=== PATIENT | male | born 1965 | race Caucasian/White ===

== ENCOUNTER 2016-04-29 18:00 | Emergency (ER) | payer OTHER ==
[~2016-04-29] VITALS: Ht 180.3 cm; Wt 104.3 kg
[~2016-04-29 18:00] MED LIST: AUGMENTIN 875875 MG PO; BACTRIM DS 8001 TAB PO; BENTYL20 MG PO; DICLOFENAC SODI75 M3 PO; ENDOCET 325 MG-1 TA1 PO; FLEXERIL10 MG PO; HYDROCODONE/ACE1 TA1 PO; INDOMETHACIN50 MG PO; KEFLEX500 MG PO; MEDROL DOSEPAK1 PAC PO; NORVASC 10MG10 MG PO; NORVASC 5MG TAB5 MG PO; PANTOPRAZOLE SO40 MG PO; PERCOCET 325 MG1 TA2 PO; PREDNISONE10 MG PO; TAMSULOSIN HYD0.4 MG PO; TRIUMEQ1 TAB PO; ZOFRAN ODT4 MG PO
--- NOTE | 2016-04-29 18:25 | ED DYSPNEA/ASTHMA COMPLAINT ---
History of Present Illness General Chief Complaint: General Adult Stated Complaint: PT HAVING PROBLEM BREATHING SPO 96 Source: patient Exam Limitations: no limitations Allergies Coded Allergies: povidone-iodine (RASH 04/24/15) Reconcile Medications Albuterol Sulfate 2.5 MG/3 ML (0.083 %) VIAL.NEB 1 Vial INH/SRI Q4P PRN wheezing/shortness of breath Amlodipine Besylate 10 MG TABLET 1 TAB PO DAILY BP (Reported) Aspirin (Lo-Dose Aspirin EC) 81 MG TABLET.DR 1 TAB PO DAILY HEART/BLOOD ( Reported) Doxycycline Hyclate (Vibramycin) 100 MG CAPSULE 1 CAP PO BID infection Emtricitab/Rilpiviri/Tenof Ala (Odefsey Tablet) 200 MG-25 MG-25 MG TABLET 1 TAB PO DAILY ANTIVIRAL (Reported) Fluticasone Propionate 50 MCG/ACTUATION SPRAY.SUSP 1 SPRAY NASB PRN NASAL CONGESTION (Reported) Ibuprofen 600 MG TABLET 1 TAB PO PRN PAIN/INFLAMMATION (Reported) with food Methylprednisolone. (Medrol) 4 MG TAB.DS.PK 1 DP PO AD breathing Pantoprazole Sodium 40 MG TABLET.DR 1 TAB PO BID GI (Reported) Robitussin AC (Guaifenesin-Codeine Syrup) 200 MG-20 MG/10 ML LIQUID 10 ML PO Q6H PRN COUGH Trazodone HCl 50 MG TABLET 1 TAB PO PRN SLEEP (Reported) Triage Note: PT REPORTS DIFFICULTY BREATHING WITH PERSISTANT GREEN COLOR PRODUCTIVE COUGH. THIS SMATTER BEGAN 3 DAYS AGO, DENIED FEVER. NON SMOKER. Triage Nurses Notes Reviewed? yes HPI: Patient is a 50 year old male presents complaining of cough and shortness of breath. Patient began with sore throat on Sunday. Cough onset on Sunday. Associated diarrhea, headache and nausea. Patient has been able to tolerate food and fluids. Patient received an influenza vaccination this year. Yesterday chills and diaphoresis. Patient is HIV+, last CD4 was slightly under 500, last checked a couple of months ago. Denies fevers. (BEAU NARANJO,BERT) Vital Signs & Intake/Output Vital Signs & Intake/Output Vital Signs Date Time Temp Pulse Resp B/P Pulse O2 O2 Flow FiO2 Ox Delivery Rate 04/29 2100 98.7 97 22 125/87 94 Nasal 2.0L Cannula 04/29 1901 96 Room Air 04/29 1843 99.4 95 22 130/93 93 Room Air 04/29 1804 97.5 117 18 122/84 96 Room Air Past History Travel History Traveled to [place] past 21 day No Medical History Any Pertinent Medical History? 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 No (BERT ANTUNEZ) Review of Systems Review of Systems Constitutional: Reports: malaise. Denies: chills, fever. EENTM: Reports: nasal congestion, throat pain. Respiratory: Reports: see HPI, cough, short of breath, sputum production, wheezing. Cardiovascular: Denies: chest pain. GI: Reports: diarrhea (resolved). Denies: abdominal pain, vomiting. Genitourinary: Reports: no symptoms. Musculoskeletal: Reports: no symptoms. Skin: Reports: no symptoms. Neurological/Psychological: Reports: no symptoms. Hematologic/Endocrine: Reports: no symptoms. Immunologic/Allergic: Reports: HIV/AIDS. (BERT ANTUNEZ) Physical Exam Physical Exam General Appearance: well developed/nourished, alert, awake Head: atraumatic, normal appearance Eyes: Bilateral: normal appearance, PERRL, EOMI. Ears, Nose, Throat: normal pharynx, normal ENT inspection, hearing grossly normal Neck: normal inspection, supple, full range of motion Respiratory: diffuse expiratory wheezing Cardiovascular: tachycardia (regular rhythm) Peripheral Pulses: 2+ radial (L) Extremities: normal inspection, normal capillary refill, normal range of motion, no edema Neurologic/Psych: no motor/sensory deficits, awake, alert, oriented x 3, normal gait, normal mood/affect Skin: intact, normal color, warm/dry Lymphatic: no anterior cervical dennis Core Measures ACS in differential dx? No Severe Sepsis Present: No Septic Shock Present: No (BERT ANTUNEZ) Progress Differential Diagnosis: asthma, AMI, bronchitis, CHF, COPD, pulmonary embolism, pneumonia, unstable angina, PCP pneumonia Plan of Care: Orders Procedure Date/time Status Add-on Test (ER Only) 04/30 2003 Active LDH (LACT ACID DEHYDROGENASE) 04/29 1950 Complete LACTIC ACID 04/29 1950 Complete COMPREHENSIVE METABOLIC PANEL 04/29 1950 Complete CBC WITHOUT DIFFERENTIAL 04/29 1950 Complete Laboratory Tests 04/29/16 2006: Anion Gap 11, Estimated GFR > 60, BUN/Creatinine Ratio 12.7, Glucose 100 H, Lactic Acid 1.5, Calcium 9.1, Total Bilirubin 0.5, AST 29, ALT 53, Alkaline Phosphatase 99, Lactate Dehydrogenase 438, Total Protein 7.4, Albumin 4.0, Globulin 3.4, Albumin/Globulin Ratio 1.2, CBC w Diff NO MAN DIFF REQ, RBC 4.83, MCV 95.3 H, MCH 32.2 H, RDW 13.4, MPV 9.1, Gran % 40.3 L, Lymphocytes % 37.7, Monocytes % 15.8 H, Eosinophils % 5.7 H, Basophils % 0.5, Absolute Granulocytes 2.6, Absolute Lymphocytes 2.4, Absolute Monocytes 1.0 H, Absolute Eosinophils 0.4, Absolute Basophils 0, PUBS MCHC 33.7 Patient reports his resting heart rate is normally in the 100s to 110s. Discussed with Dr. Harrison. 04/29/2016 7:42:50 PM: Patient continues with moderate diffuse inspiratory and expiratory wheezing after 3 nebulizer treatments. Oxygen saturation 92-93% on room air 04/29/2016 9:06:15 PM: Patient reports no significant improvement. Offered admission, patient would prefer discharge. Patient taken off of supplemental oxygen Will recheck on room air saturation if patient maintaining his oxygen saturation then we'll discharge with close outpatient follow-up with patient desaturating then plan for admission. 04/29/2016 9:30:40 PM: Patient ambulated from pot 3 down to pot one nursing station, oxygen saturation 92-93% on room air. No acute respiratory distress with ambulation. Discussed with patient discharged versus remaining in the hospital. With patient not becoming hypoxic and believed that patient can be started on a course of oral steroids, nebulizer and follow-up with his primary care doctor on Sunday. Patient instructed to return to the emergency Department immediately if any worsening of symptoms. (BERT ANTUNEZ) Diagnostic Imaging: Viewed by Me: Radiology Read. Discussed w/RAD: Radiology Read. Radiology Impression: PATIENT: TUNG SCOTT PRESENT AGE: 50 PATIENT ACCOUNT NO: [id number] : 63 LOCATION: [facility] [place] ORDERING PHYSICIAN: BERT NARANJO SERVICE DATE: 04/29/16 EXAM TYPE: RAD - XRY-CHEST XRAY, PA AND LATERAL EXAMINATION: XR CHEST CLINICAL INFORMATION: Productive cough. COMPARISON: None TECHNIQUE: 2 views of the chest were obtained. FINDINGS: Both lungs are well-expanded and clear of acute process. The heart size and pulmonary vascularity is normal. No gross bony abnormality seen. IMPRESSION: Unremarkable chest examination. DICTATED BY: IZAIAH BURTON MD DATE/ TIME DICTATED:04/29/161830 CASEWORK MANAGER:PERI DATE/TIME TRANSCRIBED: 04/29/161830 CONFIDENTIAL, DO NOT COPY WITHOUT APPROPRIATE AUTHORIZATION. < Electronically signed in Other Vendor System> SIGNED BY: IZAIAH BURTON MD 1835 Initial ED EKG: none (BERT ANTUNEZ) Departure Departure Time of Disposition: 2131 Disposition: HOME OR SELF CARE Condition: Stable Clinical Impression Primary Impression: Bronchospasm with bronchitis, acute Referrals: BARBARA MARTÍNEZ MD (PCP/Family) Additional Instructions: Use the nebulizer every 4-6 hours. Follow-up with your primary doctor on Sunday. Return to the emergency department if you develop a temperature of 100.4 or higher, unable to stay hydrated, breathing worsening, or worsening of symptoms. Departure Forms: Customer Survey General Discharge Information Prescriptions: Current Visit Scripts Methylprednisolone. (Medrol) 1 DP PO AD #1 DP Albuterol Sulfate 1 Vial INH/SRI Q4P PRN wheezing/shortness of breath #1 BOX Robitussin AC (Guaifenesin-Codeine Syrup) 10 ML PO Q6H PRN COUGH #150 ML Doxycycline Hyclate (Vibramycin) 1 CAP PO BID #20 CAP (BERT ANTUNEZ) PA/METALSMITH Co-Sign Statement Statement: ED Attending supervision documentation- [] I saw and evaluated the patient. I have also reviewed all the pertinent lab results and diagnostic results. I agree with the findings and the plan of care as documented in the PA's/METALSMITH's documentation. [X] I have reviewed the ED Record and agree with the PA's/METALSMITH's documentation. [] Additions or exceptions (if any) to the PAs/METALSMITH's note and plan are summarized below: [] (BERNARD PATRICK,JOSE ANGEL Peacock) Critical Care Note Critical Care Note Critical Care Time: non-applicable (BEAU NARANJO,BERT)
--- NOTE | 2016-04-29 18:36 | RADIOLOGY REPORT ---
EXAMINATION: XR CHEST CLINICAL INFORMATION: Productive cough. COMPARISON: None TECHNIQUE: 2 views of the chest were obtained. FINDINGS: Both lungs are well-expanded and clear of acute process. The heart size and pulmonary vascularity is normal. No gross bony abnormality seen. IMPRESSION: Unremarkable chest examination.
[2016-04-29] MEDS ORDERED: TRAZODONE HCL50 M1 PO (18:43)
[2016-04-29] MEDS ORDERED: ODEFSEY TABLET1 EACH PO (18:43)
[2016-04-29] MEDS ORDERED: PANTOPRAZOLE SO40 M1 PO (18:43)
[2016-04-29] MEDS ORDERED: AMLODIPINE BESY10 M1 PO (18:43)
[2016-04-29] MEDS ORDERED: LO-DOSE ASPIRIN81 MG PO (18:44)
[2016-04-29] MEDS ORDERED: FLUTICASONE PRO16 GM NASB (18:44)
[2016-04-29] MEDS ORDERED: IBUPROFEN600 M1 PO (18:45)
[2016-04-29 20:12] LABS: ABSOLUTE BASOPHIL COUNT 0 /CUMM (0.0-0.2); ABSOLUTE EOSINOPHIL COUNT 0.4 /CUMM (0.0-0.7); ABSOLUTE GRANULOCYTE CT 2.6 /CUMM (1.4-6.5); ABSOLUTE LYMPH COUNT 2.4 /CUMM (1.2-3.4); BASOPHIL % 0.5 % (0.0-2.0); EOSINOPHIL % 5.7 % (0-5); GRANULOCYTE % 40.3 % (42.2-75.2); MEAN CORPUSCULAR HGB 32.2 PG (27.0-31.0); MEAN CORPUSCULAR HGB CONC 33.7 G/DL (33.0-37.0); MEAN CORPUSCULAR VOLUME 95.3 FL (80.0-94.0); MEAN PLATELET VOLUME 9.1 FL (7.4-10.4); PLATELET COUNT 170 /CUMM (130-400); RBC DISTRIBUTION WIDTH 13.4 % (11.5-14.5); RED BLOOD CELL CT 4.83 /CUMM (4.70-6.10); WHITE BLOOD CELL COUNT 6.4 /CUMM (4.8-10.8)
[2016-04-29 21:00] VITALS: BP 125/87
[2016-04-29] MEDS ORDERED: GUAIFENESIN-COD10 ML PO (21:34)
[2016-04-29] MEDS ORDERED: VIBRAMYCIN100 MG PO (21:34)
[2016-04-29] MEDS ORDERED: ALBUTEROL2.5 MG/3 M INH/SOL (21:34)
[2016-04-29] MEDS ORDERED: MEDROL4 M2 PO (21:34)
== END 2016-04-29 21:47 ==
LOC: ERH 18:00
PROVIDERS: Physician Assistant
DX: J20.9 Acute bronchitis, unspecified (principal); B20 Human immunodeficiency virus [HIV] disease
CPT/HCPCS: 1263; 96374; J2930

== ENCOUNTER 2016-05-05 05:59 | Emergency (ER) | payer OTHER ==
[~2016-05-05] VITALS: Ht 180.3 cm; Wt 102.1 kg
[~2016-05-05 05:59] MED LIST changes: +ALBUTEROL2.5 MG/3 M INH/SOL; +AMLODIPINE BESY10 M1 PO; +FLUTICASONE PRO16 GM NASB; +GUAIFENESIN-COD10 ML PO; +IBUPROFEN600 M1 PO; +LO-DOSE ASPIRIN81 MG PO; +MEDROL4 M2 PO; +ODEFSEY TABLET1 EACH PO; +PANTOPRAZOLE SO40 M1 PO; +TRAZODONE HCL50 M1 PO; +VIBRAMYCIN100 MG PO
--- NOTE | 2016-05-05 06:40 | ED NECK/BACK PAIN COMPLAINT ---
History of Present Illness General Chief Complaint: Low Back Pain/Injury Stated Complaint: LOWER BACK PAIN Source: patient, old records Exam Limitations: no limitations Vital Signs & Intake/Output Vital Signs & Intake/Output Vital Signs Date Time Temp Pulse Resp B/P Pulse O2 O2 Flow FiO2 Ox Delivery Rate 05/05 0947 60 14 126/90 100 Room Air 05/05 0628 Room Air 05/05 0622 97.1 66 20 141/95 96 Room Air Allergies Coded Allergies: povidone-iodine (RASH 05/05/16) Triage Note: TRIAGE: PATIENT TO ER FROM HOME REPORTS SUDDEN ONSET SHARP ENTIRE BACK PAIN WHILE PUTTING LADDER INTO HIS OWN TRUCK (NOT AT WORK), INC W/ MVMT AND SNEEZE, "NOT THE FIRST TIME." DENIES ANY KNOWN INJURIES/ FALLS. Triage Nurses Notes Reviewed? yes Onset: Just prior to arrival Duration: minute(s):, constant, continues in ED Timing: recent history Quality/Severity: severe, radiation, sharpness Location: lumbar spine, paraspinous muscles Radiation: buttocks, upper legs Context: lifting, turning/bending Method of Injury: prior injury, twisted Loss of Consciousness: no loss of consciousness Modifying Factors: immobilization, movement, rest Associated Symptoms: muscle spasm, trouble walking HPI: Prior to admission patient sneezed bowel putting lateral top of his truck developing severe sharp right low back pain radiating to buttocks and upper leg worse with turning bending. He denies fever chills nausea vomiting diarrhea abdominal pain chest pain shortness breath headache dysuria rash bleeding change in motor sensory function change in bowel bladder habit. (NADIA HENNING MD) Reconcile Medications Albuterol Sulfate 2.5 MG/3 ML (0.083 %) VIAL.NEB 1 Vial INH/SRI Q4P PRN wheezing/shortness of breath Amlodipine Besylate 10 MG TABLET 1 TAB PO DAILY BP (Reported) Aspirin (Lo-Dose Aspirin EC) 81 MG TABLET.DR 1 TAB PO DAILY HEART/BLOOD ( Reported) Baclofen 10 MG TABLET 1-2 TAB PO TID PRN muscle strain Doxycycline Hyclate (Vibramycin) 100 MG CAPSULE 1 CAP PO BID infection Emtricitab/Rilpiviri/Tenof Ala (Odefsey Tablet) 200 MG-25 MG-25 MG TABLET 1 TAB PO DAILY ANTIVIRAL (Reported) Fluticasone Propionate 50 MCG/ACTUATION SPRAY.SUSP 1 SPRAY NASB PRN NASAL CONGESTION (Reported) Ibuprofen 600 MG TABLET 1 TAB PO PRN PAIN/INFLAMMATION (Reported) with food Ibuprofen 800 MG TABLET 1 TAB PO Q6PRN PRN pain Methylprednisolone. (Medrol) 4 MG TAB.DS.PK 1 DP PO AD breathing Oxycodone HCl/Acetaminophen (Percocet 5-325 MG Tablet) 5 MG-325 MG TABLET 1 TAB PO Q6P PRN severe pain Pantoprazole Sodium 40 MG TABLET.DR 1 TAB PO BID GI (Reported) Robitussin AC (Guaifenesin-Codeine Syrup) 200 MG-20 MG/10 ML LIQUID 10 ML PO Q6H PRN COUGH Trazodone HCl 50 MG TABLET 1 TAB PO PRN SLEEP (Reported) (JOSE ANGEL YANCEY DO) Past History Travel History Traveled to [place] past 21 day No Medical History Any Pertinent Medical History? see below for history Neurological: NONE EENT: NONE Cardiovascular: hypertension Respiratory: NONE Gastrointestinal: diverticulitis, GERD Hepatic: hepatitis C Renal: NONE Musculoskeletal: NONE Psychiatric: NONE Endocrine: NONE Blood Disorders: HIV Cancer(s): NONE CHEMICAL LABORATORY ASSISTANT/Reproductive: HIV History of MRSA: No History of VRE: No History of CDIFF: No Surgical History Surgical History: appendectomy, SIGMOID COLON REMOVED Psychosocial History Who do you live with Son Services at Home None What is your primary language Cook Islander Tobacco Use: Quit >30 days ago Family History Hx Contributory? No (NADIA HENNING MD) Review of Systems Review of Systems Constitutional: Reports: no symptoms. Eyes: Reports: no symptoms. Ears, Nose, Throat, Mouth: Reports: no symptoms. Respiratory: Reports: no symptoms. Cardiovascular: Reports: no symptoms. Gastrointestinal/Abdominal: Reports: no symptoms. Musculoskeletal: Reports: see HPI, back pain. Skin: Reports: no symptoms. Neurological/Psychological: Reports: no symptoms. All Other Systems: Reviewed and Negative (NADIA HENNING MD) Physical Exam Physical Exam General Appearance: well developed/nourished, alert, awake, anxious, moderate distress Head: atraumatic, normal appearance Eyes: Bilateral: normal appearance, PERRL, EOMI, normal inspection. Ears, Nose, Throat, Mouth: hearing grossly normal, moist mucous membrane Neck: normal inspection, supple, full range of motion, normal alignment, no midline tenderness Respiratory: normal breath sounds, chest non-tender, no respiratory distress, quiet respiration, lungs clear Cardiovascular: regular rate/rhythm, normal peripheral pulses, norml femoral pulses equa Peripheral Pulses: 4+ carotid (R), 4+ carotid (L) Gastrointestinal: normal bowel sounds, soft, non-tender, no organomegaly Back: normal inspection, decreased range of motion, muscle spasm, no vertebral tenderness Extremities: normal range of motion Straight Leg Raising: Right: Pain at ____ degrees (10). Left: Pain at ____ degrees (10). Sensory: Medial Le: L4R, L4L. Top of Foot: 2: L5R, L5L. Sole of Foot: 2: SIR, KEV. Motor: Deficit L4 Right: No Deficit L4 Left: No Deficit L5 Right: No Deficit L5 Left: No Deficit S1 Right: No Deficit S1 Right: No DTR: Deficit L4 Left: No Deficit L4 Right: No Deficit S1 Left: No Deficit S1 Right: No Patellar: 3: L4 Right, L4 Left. Neurologic/Psych: no motor/sensory deficits, awake, alert, oriented x 3, normal mood/affect, python java developer II-XII nml as tested Skin: intact, normal color, warm/dry (NADIA HENNING MD) Progress Differential Diagnosis: herniated disc, myofascial strain, sciatica Plan of Care: Current Medications Sig/Simba Start time Last Medication Dose Stop Time Status Admin Diazepam 5 MG ONCE ONE 05/05 644 UNVr (Valium) 05/05 0546 Ketorolac 30 MG ONCE ONE 05/05 0545 UNVr Tromethamine 05/05 645 (Toradol) Morphine Sulfate 4 MG ONCE ONE 05/05 0545 UNVr (Morphine) 05/05 0546 Hand-Off Endorsed To: JOSE ANGEL YANCYE DO Endorsed Time: 707 Pending: other (improved condition) (NADIA HENNING MD) Departure Departure Disposition: HOME OR SELF CARE Condition: Stable Clinical Impression Primary Impression: Sciatica of right side associated with disorder of lumbar spine Secondary Impressions: Facet arthritis of lumbar region Referrals: MELISSA PATRICK,PALMIRA Mcdermtot Call for neurosurgical follow up DAWN PATRICK,ONEL MARTÍNEZ MD,BARBARA (PCP/Family) Departure Forms: Customer Survey General Discharge Information RELEASE- WORK Prescriptions: Current Visit Scripts Ibuprofen 1 TAB PO Q6PRN PRN pain #50 TAB Baclofen 1-2 TAB PO TID PRN muscle strain #30 TAB Oxycodone HCl/Acetaminophen (Percocet 5-325 MG Tablet) 1 TAB PO Q6P PRN severe pain #15 TAB (JUVENCIO PATRICK,NADIA) Departure Comments 05/05/16 7:30 AM Patient signed out to me by Dr. Henning. He is waiting a response to pain medications 05/05/16 9:40 AM Patient feels better. He thinks he is able to walk. There is no direct trauma. He was coming down the ladder and wrenched his back. (JOSE ANGEL YANCEY DO)
[2016-05-05] MEDS ORDERED: PERCOCET 5-3251 EACH PO (07:26)
[2016-05-05] MEDS ORDERED: BACLOFEN10 M1 PO (07:26)
[2016-05-05] MEDS ORDERED: IBUPROFEN800 M1 PO (07:26)
[2016-05-05 09:47] VITALS: BP 126/90
== END 2016-05-05 09:49 ==
LOC: CANRESERV → ENRESERVTM → ENRESERVDT → ERH 05:59 → EDBEDREQ 05-06 12:56 → CANBEDREQ 05-07 09:12
DX: M51.16 Intervertebral disc disorders with radiculopathy, lumbar region (principal); M46.96 Unspecified inflammatory spondylopathy, lumbar region
CPT/HCPCS: 96374; 96375; J1885; J3360

== ENCOUNTER 2017-07-16 10:03 | Emergency (ER) | payer OTHER ==
[~2017-07-16] VITALS: Ht 180.3 cm; Wt 106.6 kg
[~2017-07-16 10:03] MED LIST changes: +BACLOFEN10 M1 PO; +BENADRYL25 MG PO; +CYCLOBENZAPRINE10 M1 PO; +DESCOVY 200-251 EACH PO; +GABAPENTIN300 M2 PO; +IBUPROFEN800 M1 PO; +KETOROLAC TROME10 M1 PO; +LISINOPRIL10 M1 PO; +ORPHENADRINE C100 MG PO; +OXYCODONE HCL5 M2 PO; +PERCOCET 5-3251 EACH PO; +PREDNISONE50 M1 PO; +PREZCOBIX 8001 EACH PO
--- NOTE | 2017-07-16 11:45 | ED GENERAL ADULT ---
History of Present Illness General Chief Complaint: Headache Stated Complaint: DIZZY/CARRASCO Source: patient Exam Limitations: no limitations Vital Signs & Intake/Output Vital Signs & Intake/Output Vital Signs Date Time Temp Pulse Resp B/P B/P Pulse O2 O2 Flow FiO2 Mean Ox Delivery Rate 07/16 1503 72 18 118/78 99 Room Air 07/16 1234 97.8 61 18 123/92 95 07/16 1013 97.1 90 18 122/88 98 Room Air Allergies Coded Allergies: povidone-iodine (RASH 05/19/17) Reconcile Medications Cephalexin 500 MG CAPSULE 1 CAP PO TID ANTIBIOTIC, INFECTION (Reported) Darunavir/Cobicistat (Prezcobix 800 MG-150 MG Tablet) 800 MG-150 MG TABLET 1 TAB PO DAILY ANTIVIRAL (Reported) Emtricitabine/Tenofov Alafenam (Descovy 200-25 MG Tablet) 200 MG-25 MG TABLET 1 TAB PO DAILY ANTIVIRAL (Reported) Lisinopril 10 MG TABLET 1 TAB PO DAILY BP (Reported) Meloxicam 15 MG TABLET 1 TAB PO DAILY PAIN (Reported) Pantoprazole Sodium 40 MG TABLET.DR 1 TAB PO BID GI (Reported) Pregabalin (Lyrica) 150 MG CAPSULE 1 CAP PO TID PAIN (Reported) Triage Note: 51 YEAR OLD MALE TO ER , STATES THAT HE IS NOT DOING WELL TODAY, HAS A HEADACHE AND IS OFF BALANCE, HAS A HISTORY OF VERTIGO. PT ALSO STATES THAT HE HAS A LUMP IN R SIDE OF NECK THATS BEEN THERE FOR MONTHS AND IS GROWING. Triage Nurses Notes Reviewed? yes Onset: Abrupt Duration: day(s):, getting worse Timing: recent history Injury Environment: home Severity: moderate, severe No Modifying Factors: none HPI: 51-year-old male comes into the emergency room for further evaluation of pain/ discomfort the right side of his neck that radiates up into his head. He reports some intermittent blurry vision in the right eye. He reports that he feels unsteady and his balance is off. He reports that the pain and discomfort has been going on for quite some time but the blurry vision is recent. In the past she's had some issues with his balance but reports that it got significantly worse over the last few days. Due to the worsening symptoms in the balance in the visual symptoms he decided to come in for further evaluation. Reports some chronic shortness of breath but denies any chest pain fever chills coughing and vomiting. Denies any complete vision loss. [id number] history of smoking. Denies any drug use. Denies any other associated symptoms. (Mark Lyons) Past History Travel History Traveled to [place] past 21 day No Medical History Any Pertinent Medical History? see below for history Neurological: dizziness EENT: NONE Cardiovascular: hypertension Respiratory: NONE Gastrointestinal: diverticulitis, GERD Hepatic: hepatitis C Renal: NONE Musculoskeletal: CHRONIC BACK PAIN Psychiatric: NONE Endocrine: NONE Blood Disorders: HIV Cancer(s): NONE PROOFER/Reproductive: HIV History of MRSA: No History of VRE: No History of CDIFF: No Surgical History Surgical History: appendectomy, SIGMOID COLON REMOVED Psychosocial History Who do you live with Son Services at Home None What is your primary language Puerto Rican Tobacco Use: Never used ETOH Use: denies use Illicit Drug Use: denies illicit drug use Family History Hx Contributory? No (Mark Lyons) Review of Systems Review of Systems Constitutional: Reports: no symptoms. EENTM: Reports: see HPI. Respiratory: Reports: no symptoms. Cardiovascular: Reports: see HPI. GI: Reports: no symptoms. Genitourinary: Reports: no symptoms. Musculoskeletal: Reports: no symptoms. Skin: Reports: no symptoms. Neurological/Psychological: Reports: see HPI. Hematologic/Endocrine: Reports: no symptoms. Immunologic/Allergic: Reports: no symptoms. All Other Systems: Reviewed and Negative (Mark Lyons) Physical Exam Physical Exam General Appearance: well developed/nourished, no apparent distress, alert, awake Head: atraumatic, normal appearance Eyes: Bilateral: normal appearance, PERRL, EOMI. Ears, Nose, Throat: normal ENT inspection, hearing grossly normal Neck: normal inspection, supple, full range of motion, no bruits appreciated, Respiratory: normal breath sounds, no respiratory distress Cardiovascular: regular rate/rhythm Gastrointestinal: soft Back: normal inspection Extremities: normal inspection, normal range of motion, no edema Neurologic/Psych: no motor/sensory deficits, awake, alert, oriented x 3, normal gait, normal mood/affect, cad designer II-XII nml as tested Skin: intact, normal color Lymphatic: no anterior cervical dennis, No supraclavicular lymphadenopathy Core Measures ACS in differential dx? Yes CVA/TIA Diagnosis: No Sepsis Present: No Sepsis Focused Exam Completed? No (Bonifacio NARANJO,Mark) Progress Differential Diagnoses I considered the following diagnoses in my evaluation of the patient: CVA, amaurosis fugax, retinal detachment, carotid artery dissection, vertebral artery dissection, atypical migraine, vertigo, retinal artery hemorrhage, Diagnostic Imaging: Viewed by Me: Radiology Read, CT Scan. Discussed w/RAD: Radiology Read, CT Scan. Radiology Impression: PATIENT: TUNG SCOTT PRESENT AGE: 51 PATIENT ACCOUNT NO: [id number] : 63 LOCATION: [facility] ORDERING PHYSICIAN: Mark NARANJO SERVICE DATE: 07/16/17 EXAM TYPE: CAT - CT HEAD ANGIOGRAM; CT NECK ANGIOGRAM Addendum: Technique section should read that first a noncontrast head CT was performed prior to postcontrast imaging. Addendum Signed by: Kunal Rodriguez MD 07/16/[address] ANGIOGRAM NECK WITH CONTRAST CT ANGIOGRAM BRAIN WITH CONTRAST CLINICAL INFORMATION: Right-sided headache and intermittent vision loss to rule out arterial dissection. COMPARISON: None available. TECHNIQUE: Test bolus sequences followed by intravenous administration 94 mL of Optiray 320. Helical imaging was performed in the axial plane from the thoracic inlet to the skull vertex. Delayed postcontrast imaging of the head was also performed. The data was processed at the radiology technologist workstation for generation of MIP sequences. Angled MIPs and volume rendered reformatted images were also generated at an offline 3D workstation. Stenoses are assessed in accordance with NASCET criteria unless otherwise indicated. FINDINGS: BRAIN: There is no pathologic enhancement intracranially. Incidental left choroid fissural cyst. There is no intracranial hemorrhage, hydrocephalus, extra-axial surface collection, midline shift, or other herniation pattern. Ryan to white matter differentiation is diffusely maintained without evidence of an evolved acute territorial infarct. The basilar cisterns are preserved. No significant soft tissue abnormality. No acute osseous abnormality. The paranasal sinuses and the mastoid air cells are well-aerated. Rightward deviation of the nasal septum. CERVICAL SOFT TISSUES AND LUNG APICES: No significant soft tissue findings within the neck. Imaged upper lungs are clear. There is a chronic appearing superior endplate Schmorl's node at C7. NECK CTA: There is a classic 3 vessel configuration of the aortic arch. Proximal arch vessels are non-stenotic. The vertebral arteries are codominant. No significant ostial stenosis is visualized on either side. Both vertebral arteries are widely patent throughout their extracranial cervical course. Both common carotid arteries and internal carotid arteries are widely patent. Retropharyngeal course of the internal carotid arteries. BRAIN CTA: There is normal opacification of major intracranial arteries. No focal flow-limiting stenosis, discrete proximal large artery occlusion, or saccular intradural aneurysm is identified. Timing of the contrast bolus allows assessment of the major dural venous sinuses, which all opacify normally. IMPRESSION: Unremarkable CTA of the head and neck. There is no evidence of arterial dissection. DICTATED BY: Kunal Rodriguez MD DATE/TIME DICTATED:07/16/171331 WHITE MIXING OPERATOR:PERI DATE/TIME TRANSCRIBED:1331 CONFIDENTIAL, DO NOT COPY WITHOUT APPROPRIATE AUTHORIZATION. < Electronically signed in Other Vendor System> SIGNED BY: Kunal Rodriguez MD 07/16/17 1357, PATIENT: TUNG SCOTT PRESENT AGE: 51 PATIENT ACCOUNT NO: [id number] : 63 LOCATION: [facility] ORDERING PHYSICIAN: Mark NARANJO SERVICE DATE: 07/16/17 EXAM TYPE: RAD - XRY-CHEST XRAY, TWO VIEWS EXAMINATION: CHEST 2 VIEWS CLINICAL INFORMATION: Shortness of breath. COMPARISON: 04/29/2016. TECHNIQUE: PA and lateral views of the chest were obtained. FINDINGS: The cardiac silhouette is not enlarged. The mediastinal and hilar contours are unremarkable. There are neither pleural effusions nor pneumothoraces. There is minimal atelectasis at the lateral left lung base. There are no consolidations. The osseous structures are unremarkable. IMPRESSION : No consolidations. Minimal atelectasis at the lateral left lung base. DICTATED BY: Kevin Boateng MD DATE/TIME DICTATED:07/16/171244 WHITE MIXING OPERATOR: PERI DATE/TIME TRANSCRIBED:07/16/171244 CONFIDENTIAL, DO NOT COPY WITHOUT APPROPRIATE AUTHORIZATION. <Electronically signed in Other Vendor System> SIGNED BY: Kevin Boateng MD 07/16/17 5841 Initial ED EKG: normal sinus rhythm, rate (69), pacs (Mark Lyons) Plan of Care: Orders Procedure Date/time Status TROPONIN LEVEL 07/16 1144 Complete COMPREHENSIVE METABOLIC PANEL 07/16 1144 Complete CBC WITHOUT DIFFERENTIAL 07/16 1144 Complete EKG 07/16 1144 Active Laboratory Tests 07/16/17 1208: Anion Gap 11, Estimated GFR > 60, BUN/Creatinine Ratio 18.9, Glucose 97, Calcium 9.8, Total Bilirubin 0.6, AST 22, ALT 39, Alkaline Phosphatase 81, Troponin I < 0.01, Total Protein 7.3, Albumin 4.1, Globulin 3.2, Albumin/Globulin Ratio 1.3, CBC w Diff NO MAN DIFF REQ, RBC 4.91, MCV 95.1 H, MCH 32.9 H, MCHC 34.7, RDW 13.8, MPV 10.2, Gran % 66.5, Lymphocytes % 20.1 L, Monocytes % 10.3 H, Eosinophils % 2.3, Basophils % 0.8, Absolute Granulocytes 4.6, Absolute Lymphocytes 1.4, Absolute Monocytes 0.7 H, Absolute Eosinophils 0.2, Absolute Basophils 0.1 (Harry Garcia DO) Departure Departure Disposition: HOME OR SELF CARE Condition: Stable Clinical Impression Primary Impression: Neck pain on right side Secondary Impressions: Blurred vision, right eye Referrals: Gisela PATRICK,Corey Horta MD,Tim Fallon (PCP/Family) Arslan PATRICK,Tevin Beck. Additional Instructions: Follow-up with neurologist and packing and wrapping supervisor provided. Return if any concerns worsening his symptoms. Return if any permanent vision loss. Please go over all results of today's visit with your primary care doctor. Contact your primary care doctor to let them know you were here in the emergency room. There may be nonspecific findings which may not be related to your visit today here in the emergency room but may require further evaluation and chronic monitoring by your primary care doctor. If you had a laceration today the chance of foreign body always remains. You should follow-up with your primary care doctor for recheck in 3-5 days for a wound check. If you had an x-ray done there is a chance that a fracture could have been missed on initial read and you should follow-up with your primary care doctor for repeat x-rays if symptoms persist. If your blood pressure was elevated here in the emergency room please have rechecked by ursula primary care doctor within the next 48. If you were prescribed a narcotic here in the emergency room or any type of controlled substances you're not allowed to drive while taking this medication or operate any type of heavy machinery. Narcotics can make you feel lightheaded dizziness nausea and can cause constipation. You may need to picker feeder a stool softener. Thank you for choosing [facility] emergency room. Please return to the emergency room immediately if you have any other concerns worsening of symptoms. Departure Forms: Customer Survey General Discharge Information Comments 07/16/2017 3:18:32 PM Patient was in no apparent distress. Clinically looks well. No evidence of dissection. Visual acuity intact. No neurological deficits on exam. Case was discussed with Dr. Karson Garcia. Patient will follow-up with neurology and ophthalmology. This is been an acute on chronic issue. He understands and agrees with plan of care. Reevaluated multiple times. Funduscopic exam not able to be performed due to the fact the patient was in a well lit room and eye could not be dilated. he currently has no visual disturbances. (Mark Lyons) PA/CERTIFIED MEDICAL BILLER Co-Sign Statement Statement: ED Attending supervision documentation- [x] I saw and evaluated the patient. I have also reviewed all the pertinent lab results and diagnostic results. I agree with the findings and the plan of care as documented in the PA's/CERTIFIED MEDICAL BILLER's documentation. [] I have reviewed the ED Record and agree with the PA's/CERTIFIED MEDICAL BILLER's documentation. [] Additions or exceptions (if any) to the PAs/CERTIFIED MEDICAL BILLER's note and plan are summarized below: [] (Harry Garcia DO) Critical Care Note Critical Care Note Critical Care Time: non-applicable (Mark Lyons)
[2017-07-16 12:17] LABS: ABSOLUTE BASOPHIL COUNT 0.1 /CUMM (0.0-0.2); ABSOLUTE EOSINOPHIL COUNT 0.2 /CUMM (0.0-0.7); ABSOLUTE GRANULOCYTE CT 4.6 /CUMM (1.4-6.5); ABSOLUTE LYMPH COUNT 1.4 /CUMM (1.2-3.4); ABSOLUTE MONOCYTE COUNT 0.7 /CUMM (0.10-0.60); BASOPHIL % 0.8 % (0.0-2.0); EOSINOPHIL % 2.3 % (0-5); HEMATOCRIT 46.7 % (42-52); MEAN CORPUSCULAR HGB 32.9 PG (27.0-31.0); MEAN CORPUSCULAR HGB CONC 34.7 G/DL (33.0-37.0); MEAN CORPUSCULAR VOLUME 95.1 FL (80.0-94.0); MEAN PLATELET VOLUME 10.2 FL (7.4-10.4); PLATELET COUNT 187 /CUMM (130-400); RBC DISTRIBUTION WIDTH 13.8 % (11.5-14.5); RED BLOOD CELL CT 4.91 /CUMM (4.70-6.10); WHITE BLOOD CELL COUNT 6.9 /CUMM (4.8-10.8)
[2017-07-16 12:18] LABS: GRANULOCYTE % 66.5 % (42.2-75.2)
--- NOTE | 2017-07-16 12:49 | RADIOLOGY REPORT ---
EXAMINATION: CHEST 2 VIEWS CLINICAL INFORMATION: Shortness of breath. COMPARISON: 04/29/2016. TECHNIQUE: PA and lateral views of the chest were obtained. FINDINGS: The cardiac silhouette is not enlarged. The mediastinal and hilar contours are unremarkable. There are neither pleural effusions nor pneumothoraces. There is minimal atelectasis at the lateral left lung base. There are no consolidations. The osseous structures are unremarkable. IMPRESSION: No consolidations. Minimal atelectasis at the lateral left lung base.
[2017-07-16] MEDS ORDERED: MELOXICAM15 M1 PO (12:56)
[2017-07-16] MEDS ORDERED: CEPHALEXIN500 M3 PO (12:56)
[2017-07-16] MEDS ORDERED: LYRICA150 M1 PO (12:57)
--- NOTE | 2017-07-16 13:57 | CT SCAN REPORT ---
CT ANGIOGRAM NECK WITH CONTRAST CT ANGIOGRAM BRAIN WITH CONTRAST CLINICAL INFORMATION: Right-sided headache and intermittent vision loss to rule out arterial dissection. COMPARISON: None available. TECHNIQUE: Test bolus sequences followed by intravenous administration 94 mL of Optiray 320. Helical imaging was performed in the axial plane from the thoracic inlet to the skull vertex. Delayed postcontrast imaging of the head was also performed. The data was processed at the applied technologist workstation for generation of MIP sequences. Angled MIPs and volume rendered reformatted images were also generated at an offline 3D workstation. Stenoses are assessed in accordance with NASCET criteria unless otherwise indicated. FINDINGS: BRAIN: There is no pathologic enhancement intracranially. Incidental left choroid fissural cyst. There is no intracranial hemorrhage, hydrocephalus, extra-axial surface collection, midline shift, or other herniation pattern. Ryan to white matter differentiation is diffusely maintained without evidence of an evolved acute territorial infarct. The basilar cisterns are preserved. No significant soft tissue abnormality. No acute osseous abnormality. The paranasal sinuses and the mastoid air cells are well-aerated. Rightward deviation of the nasal septum. CERVICAL SOFT TISSUES AND LUNG APICES: No significant soft tissue findings within the neck. Imaged upper lungs are clear. There is a chronic appearing superior endplate Schmorl's node at C7. NECK CTA: There is a classic 3 vessel configuration of the aortic arch. Proximal arch vessels are non-stenotic. The vertebral arteries are codominant. No significant ostial stenosis is visualized on either side. Both vertebral arteries are widely patent throughout their extracranial cervical course. Both common carotid arteries and internal carotid arteries are widely patent. Retropharyngeal course of the internal carotid arteries. BRAIN CTA: There is normal opacification of major intracranial arteries. No focal flow-limiting stenosis, discrete proximal large artery occlusion, or saccular intradural aneurysm is identified. Timing of the contrast bolus allows assessment of the major dural venous sinuses, which all opacify normally. IMPRESSION: Unremarkable CTA of the head and neck. There is no evidence of arterial dissection.
[2017-07-16 15:03] VITALS: BP 118/78
== END 2017-07-16 15:05 ==
LOC: ERH 10:03
PROVIDERS: Physician Assistant Medical
DX: M54.2 Cervicalgia (principal); H53.8 Other visual disturbances; R26.81 Unsteadiness on feet; R06.02 Shortness of breath; I10 Essential (primary) hypertension
CPT/HCPCS: 71046; 93005; 93010